=== PATIENT | female | born 1965 | race American Indian/Alaskan Native ===

== ENCOUNTER → 2022-06-06 | Outpatient (CLI) | payer OTHER ==
[~2022-06-06] MED LIST: ACYC800; AMPDEX10CR; AMPDEX5 PO; BUSP10; BUSP5 PO; CYCL10 PO; Flonase 0.05% N16 GM; HYDACE5 PO; IBUP800; LEVOXYL; LEVSOD50; OMEP20ER; PRILOSEC PO; Prednisone20 MG PO; SERT25 PO; SILSUL1TC TOP; Synthroid50 MCG; Zoloft50 MG
[2022-06-07 15:11] LABS: HPV 16 Negative (Negative); HPV 18 Negative (Negative); HPV OTHER HR TYPES Negative (Negative)
== END | disposition home or self-care (01) ==
LOC: LAB 17:17 → LAB SHORT 17:17
PROVIDERS: Family Medicine
DX: Z01.419 Encounter for gynecological examination (general) (routine) without abnormal findings (principal)
CPT/HCPCS: 87624; G0145

== ENCOUNTER 2024-04-25 18:00 | Inpatient (IN) | payer OTHER ==
[~2024-04-25] VITALS: Ht 172.7 cm; Wt 91.2 kg
[2024-04-25] MEDS ORDERED: Ondansetron HCl 2 MG / ML 2ML Vial IV PRN (18:40)
[2024-04-25 19:04] LABS: Source, Urine Clean Catch
[2024-04-25 19:06] LABS: BASOPHILS PERCENT AUTO 1 % (0-2); EOSINOPHILS ABSOLUTE AUTO 0.14 K/mm3 (0.00-0.68); EOSINOPHILS PERCENT AUTO 1 % (0-6); Hematocrit 42.5 % (33.0-51.0); Hemoglobin 14.1 g/dL (11.5-16.0); IMMATURE GRAN ABSOLUTE AUTO 0.09 K/mm3 (0.00-0.10); IMMATURE GRAN PERCENT AUTO 1 % (0-1); LYMPHOCYTES ABSOLUTE AUTO 1.42 K/mm3 (0.84-5.20); LYMPHOCYTES PERCENT AUTO 11 % (21-46); MONOCYTES ABSOLUTE AUTO 0.96 K/mm3 (0.16-1.47); MONOCYTES PERCENT AUTO 7 % (4-13); Mean Corpuscular HGB 31.9 pg (26.0-34.0); Mean Corpuscular HGB Conc 33.2 g/dL (31.5-36.5); Mean Corpuscular Volume 96 fL (80-100); Mean Platelet Volume 8.8 fL (9.1-12.4); NEUTROPHILS ABSOLUTE AUTO 10.28 K/mm3 (1.96-9.15); NEUTROPHILS PERCENT AUTO 79 % (41-73); Platelet Count 479 K/mm3 (150-400); RDW Coefficient Variation 12.1 % (11.7-14.2); RDW Standard Deviation 43.7 fL (35.1-46.3); Red Blood Cell Count 4.42 M/mm3 (3.80-5.20); White Blood Cell Count 12.99 K/mm3 (4.00-11.30)
[2024-04-25 19:14] LABS: Appearance, Urine Hazy (Clear); Bilirubin, Urine Neg (Neg); Blood, Urine 1+ (Neg); Color, Urine Yellow (P-Yellow); Glucose Qualitative, Urine Neg (Neg); Ketones, Urine Neg (Neg); Leukocyte Esterase, Urine 3+ (Neg); Nitrite, Urine Neg (Neg); Protein, Urine 2+ (Neg); Specific Gravity, Urine 1.005 (1.003-1.022); Urobilinogen, Urine 1+ (Normal)
[2024-04-25 19:37] LABS: Albumin, Blood 2.5 g/dL (3.4-5.0); Albumin/Globulin Ratio 0.5 (0.8-1.8); Bilirubin, Total 0.9 mg/dL (0.1-1.0); Bun/Creatinine Ratio 11.3 (12.0-20.0); Calcium, Blood 9.5 mg/dL (8.5-10.1); Creatinine, Blood 0.8 mg/dL (0.40-1.00); Globulin, Blood 5.1 g/dL (2.2-4.0); Potassium, Blood 3.8 mmol/L (3.5-5.5); Total Protein, Blood 7.6 g/dL (6.4-8.2)
[2024-04-25 19:43] LABS: Bacteria Many /hpf; Mucus Light (0-Heavy); Red Blood Cells, Urine 0-2 /hpf (0-2); Squamous Epithelial Cells Mod /hpf (Few); White Blood Cells, Urine 50-100 /hpf (0-5)
[2024-04-25] MEDS ORDERED: Cephalexin Monohydrate 500 MG Cap PO ONE (21:50)
[2024-04-26] MEDS ORDERED: CefTRIAXone Sodium 1,000 MG in NS 100 ML IV ONE (01:05)
[2024-04-26] MEDS ORDERED: Doxycycline Hyclate 100 MG TAB PO ONE (01:05)
[2024-04-26] MEDS ORDERED: MetroNIDAZOLE 500MG/NS 100 ml 100 ML IV ONE (01:05)
[2024-04-26] MEDS ORDERED: HYDROmorphone HCl/Pf 1MG SYR IV ONE (01:05)
[2024-04-26] MEDS ORDERED: Ondansetron HCl 2 MG / ML 2ML Vial IV PRN (03:00)
[2024-04-26] MEDS ORDERED: HYDROmorphone HCl/Pf 1MG SYR IV PRN (03:00)
[2024-04-26] MEDS ORDERED: FLU VACC TS2024-25(6MOS UP)/PF 45 MCG/0.5 ML SYRINGE IM ONE (03:15)
[2024-04-26] MEDS ORDERED: Metoclopramide HCl 5MG / ML 2ML Vial IV PRN (03:15)
[2024-04-26] MEDS ORDERED: Ondansetron 4 MG TAB PO PRN (03:15)
[2024-04-26] MEDS ORDERED: Magnesium Hydroxide Conc 10 ML UDC PO PRN (03:15)
[2024-04-26] MEDS ORDERED: Docusate Sodium 100 MG Cap PO PRN (03:20)
[2024-04-26 04:35] VITALS: BP 129/92
[2024-04-26] MEDS ORDERED: Budeprion Xl300 MG PO (04:50)
[2024-04-26] MEDS ORDERED: DESV50 PO (04:51)
[2024-04-26] MEDS ORDERED: LEVOTHYROXINE100 M10 PO (04:51)
[2024-04-26 05:11] LABS: BASOPHILS ABSOLUTE AUTO 0.09 K/mm3 (0.00-0.23); BASOPHILS PERCENT AUTO 1 % (0-2); EOSINOPHILS ABSOLUTE AUTO 0.13 K/mm3 (0.00-0.68); EOSINOPHILS PERCENT AUTO 1 % (0-6); Hematocrit 39.4 % (33.0-51.0); Hemoglobin 13.2 g/dL (11.5-16.0); IMMATURE GRAN ABSOLUTE AUTO 0.11 K/mm3 (0.00-0.10); IMMATURE GRAN PERCENT AUTO 1 % (0-1); LYMPHOCYTES ABSOLUTE AUTO 2.06 K/mm3 (0.84-5.20); LYMPHOCYTES PERCENT AUTO 13 % (21-46); MONOCYTES ABSOLUTE AUTO 1.43 K/mm3 (0.16-1.47); MONOCYTES PERCENT AUTO 9 % (4-13); Mean Corpuscular HGB Conc 33.5 g/dL (31.5-36.5); Mean Corpuscular Volume 96 fL (80-100); Mean Platelet Volume 8.8 fL (9.1-12.4); NEUTROPHILS ABSOLUTE AUTO 12.71 K/mm3 (1.96-9.15); NEUTROPHILS PERCENT AUTO 77 % (41-73); Platelet Count 466 K/mm3 (150-400); RDW Coefficient Variation 12.4 % (11.7-14.2); RDW Standard Deviation 44.2 fL (35.1-46.3); Red Blood Cell Count 4.12 M/mm3 (3.80-5.20); White Blood Cell Count 16.53 K/mm3 (4.00-11.30)
[2024-04-26 05:13] LABS: Bacterial Vaginosis PCR Negative (NEGATIVE); Candida Group, PCR NOT DETECTED (NOT DETECT); Candida glabrata-krusei, PCR NOT DETECTED (NOT DETECT)
[2024-04-26 05:44] LABS: Chlamydia Trachomatis Vaginal NOT DETECTED (NOT DETECT); Neisseria Gonorrhoea Vaginal NOT DETECTED (NOT DETECT)
[2024-04-26] MEDS ORDERED: NS 250 ML IV PRN (05:45)
--- NOTE | 2024-04-26 05:56 | NUR ---
NEW ADMIT PT A/OX4. FULL CODE. ADMIT FOR LOWER RIGHT ABD PAIN; ADMIT DX PYOSALPINGITIS. PT ARRIVED TO ROOM AND ABLE TO TRANSFER WITH VERBAL CUES ONLY. PT REPORTING A 6/10 PAIN IN RLQ. ORIENTED PT TO ROOM AND CALL LIGHT. EDUCATED PT ON VISITING HOURS. INSTRUCTED ON FALL PREVENTION. REVIEWED ADMIT DX ADN POC AT THIS TIME. EDUCATED ON ABOX TO TX INFECTION. PT CONSULTED WITH OBGYN/DR MCKEON. PT ON REGULAR DIET AND ABLE TO EAT AT THIS TIME. SURGERY NOT SCHEDULED FOR TODAY. PT DENIES IGNITION SOURCES AND SAFETY CONCERNS. WCTM UNTIL REPORT GIVEN TO ONCOMING NURSE.
[2024-04-26] MEDS ORDERED: CefOXitin Sodium 2,000 MG in NS 50 ML IV SCH (06:00)
[2024-04-26 07:42] VITALS: BP 125/74
[2024-04-26] MEDS ORDERED: Doxycycline Hyclate 100 MG TAB PO SCH (09:00)
[2024-04-26] MEDS ORDERED: Lactobacil 2-S.Thermo-Bifido 1 1 Cap PO SCH (09:00)
[2024-04-26] MEDS ORDERED: Acetaminophen 500 MG Tab PO PRN (10:10)
[2024-04-26] MEDS ORDERED: OxyCODONE HCL 5 MG TAB PO PRN (10:10)
[2024-04-26] MEDS ORDERED: Ketorolac Tromethamine 30mg Vial IV PRN (10:15)
[2024-04-26] MEDS ORDERED: Albuterol HFA200 ACT/6.7 GM INH INH PRN (11:55)
[2024-04-26] MEDS ORDERED: Polyethylene Glycol 3350 17 gm PO SCH (13:00)
[2024-04-26] MEDS ORDERED: Docusate Sodium 100 MG Cap PO SCH (13:00)
[2024-04-26 17:15] LABS: BASOPHILS ABSOLUTE AUTO 0.11 K/mm3 (0.00-0.23); BASOPHILS PERCENT AUTO 1 % (0-2); EOSINOPHILS ABSOLUTE AUTO 0.09 K/mm3 (0.00-0.68); EOSINOPHILS PERCENT AUTO 1 % (0-6); Hematocrit 40.6 % (33.0-51.0); Hemoglobin 13.4 g/dL (11.5-16.0); IMMATURE GRAN ABSOLUTE AUTO 0.08 K/mm3 (0.00-0.10); IMMATURE GRAN PERCENT AUTO 1 % (0-1); LYMPHOCYTES ABSOLUTE AUTO 1.13 K/mm3 (0.84-5.20); LYMPHOCYTES PERCENT AUTO 7 % (21-46); MONOCYTES ABSOLUTE AUTO 1.25 K/mm3 (0.16-1.47); MONOCYTES PERCENT AUTO 8 % (4-13); Mean Corpuscular HGB 32.1 pg (26.0-34.0); Mean Corpuscular Volume 97 fL (80-100); Mean Platelet Volume 8.7 fL (9.1-12.4); NEUTROPHILS ABSOLUTE AUTO 13.02 K/mm3 (1.96-9.15); NEUTROPHILS PERCENT AUTO 83 % (41-73); Platelet Count 461 K/mm3 (150-400); RDW Coefficient Variation 12.4 % (11.7-14.2); RDW Standard Deviation 44.2 fL (35.1-46.3); Red Blood Cell Count 4.17 M/mm3 (3.80-5.20); White Blood Cell Count 15.68 K/mm3 (4.00-11.30)
[2024-04-26 17:16] VITALS: BP 127/74
[2024-04-26] MEDS ORDERED: buPROPion HCL 150 MG TAB.SR.12H PO SCH (18:00)
--- NOTE | 2024-04-26 18:40 | NUR ---
SHIFT SUMMARY PATIENT A/OX4, ABLE TO MAKE NEEDS KNOWN. PLEASANT AND COOPERATIVE WITH CARE. DR. MCKEON ASSESSED PATIENT THIS SHIFT AND INFORMED HER OF GOAL TO PLAN TOTAL HYSTERECTOMY OUTPATIENT AND CONTINUE WITH ANTIBIOTIC TREATMENT OF PAIN DECREASES AND PATIENT TOLERATING NAUSEA AND PO INTAKE. POSSIBILITY IF INPATIENT SURGERY IF PATIENT DOES NOT IMPROVE. PATIENT CONTINUES WITH PAIN WITH MOVEMENTS, NAUSEA HAS DECREASED THIS AFTERNOON. PRN ZOFRAN AND ROXICODONE ADMINISTERED PER JUN. IV ABX INFUSED PER JUN. FAMILY AND FRIENDS AT BEDSIDE THROUGHOUT THE SHIFT. PATIENT ALSO ABLE TO HAVE APPROX 3 HOUR NAP THIS AFTERNOON. COMPLAINING OF INCREASED VAGINAL DISCHARGE. NO OTHER CONCERNS AT THIS TIME.
[2024-04-26 20:16] VITALS: BP 99/82
[2024-04-27 03:55] VITALS: BP 106/71
[2024-04-27] MEDS ORDERED: Levothyroxine Sodium 0.1 MG Tab PO SCH (06:00)
--- NOTE | 2024-04-27 06:24 | NUR ---
PHARMACIST SUMMARY PT A/OX4. NO ACTUE EVENTS. PT ABLE TO MAKE NEEDS KNOWN. PT REPORTING IMPROVED PAIN AND FEELING BETTER THIS MORNING. PT GIVEN ROXICODONE AND TORADOL FOR PAIN. PT REPORTING ZERO PAIN AT REST; MILD TO MODERATE PAIN WITH MOVEMENT. PT DENIES NAUSEA THIS SHIFT, BUT CONTINUES TO REPORT DIMINISHED APPETITE. CALL LIGHT ACCESSIBLE. REGULAR INTERVAL ROUNDING COMPLETE TO ASSESS AND MEET NEEDS. WCTM UNTIL REPORT GIVEN TO ONCOMING NURSE.
[2024-04-27 07:32] VITALS: BP 101/76
[2024-04-27 10:01] LABS: BASOPHILS ABSOLUTE AUTO 0.07 K/mm3 (0.00-0.23); BASOPHILS PERCENT AUTO 1 % (0-2); EOSINOPHILS ABSOLUTE AUTO 0.24 K/mm3 (0.00-0.68); EOSINOPHILS PERCENT AUTO 2 % (0-6); Hematocrit 38.1 % (33.0-51.0); Hemoglobin 12.6 g/dL (11.5-16.0); IMMATURE GRAN ABSOLUTE AUTO 0.09 K/mm3 (0.00-0.10); IMMATURE GRAN PERCENT AUTO 1 % (0-1); LYMPHOCYTES ABSOLUTE AUTO 1.55 K/mm3 (0.84-5.20); LYMPHOCYTES PERCENT AUTO 12 % (21-46); MONOCYTES ABSOLUTE AUTO 0.85 K/mm3 (0.16-1.47); MONOCYTES PERCENT AUTO 6 % (4-13); Mean Corpuscular HGB 32.3 pg (26.0-34.0); Mean Corpuscular HGB Conc 33.1 g/dL (31.5-36.5); Mean Corpuscular Volume 98 fL (80-100); Mean Platelet Volume 8.9 fL (9.1-12.4); NEUTROPHILS ABSOLUTE AUTO 10.43 K/mm3 (1.96-9.15); NEUTROPHILS PERCENT AUTO 79 % (41-73); Platelet Count 438 K/mm3 (150-400); RDW Coefficient Variation 12.3 % (11.7-14.2); RDW Standard Deviation 43.8 fL (35.1-46.3); White Blood Cell Count 13.23 K/mm3 (4.00-11.30)
[2024-04-27 16:50] VITALS: BP 112/83
--- NOTE | 2024-04-27 16:52 | NUR ---
TRANSFER NOTE PATIENT A/OX4, ABLE TO MAKE NEEDS KNOWN. INDEPENDENT IN ROOM. PER DR. MCKEON, PLAN TO CHANGE FROM IV ABX TO PO TONIGHT AND HOPEFUL FOR DISCHARGE TOMORROW NIGHT IF PATIENT TOLERATES WELL. PAIN TO RLQ AND NAUSEA CONTINUE TO DECREASE. PATIENT TOLERATING SMALL AMOUNTS OF PO INTAKE AT MEALS. PATIENT COMPLAINING OF INCREASED VAGINAL DISCHARGE. PRN PAIN MEDICATION ADMINISTERED PER JUN. FAMILY AT BEDSIDE CURRENTLY. NO OTHER CONCERNS AT THIS TIME. REPORT GIVEN TO ANIA. ALL BELONGINGS SENT WITH PATIENT TO ROOM 227.
--- NOTE | 2024-04-27 17:15 | NUR ---
TRANSFER 309 TO 227 PT BROUGHT DOWN TO SURGICAL FLOOR BY MEDICAL FLOOR STAFF IN A , ORIENTED TO NEW ROOM, DISCUSSED PLAN OF CARE FOR TONIGHT AND TOMORROW, MEDICATED FOR PAIN PER EMAR, IV ABX INFUSING. CURRENTLY IN BED WITH NO COMPLAINTS OR CONCERNS. CALL LIGHT IN REACH.
--- NOTE | 2024-04-27 18:48 | NUR ---
IV ABX UPDATE CLARIFIED ABX PLAN REGARDING IV ABX AND PO ABX WITH PROVIDER, UPDATED THE PATIENT BASED ON THIS CONVERSATION.
[2024-04-27 19:20] VITALS: BP 116/70
[2024-04-27] MEDS ORDERED: MetroNIDAZOLE 500 MG Tab PO SCH (21:00)
[2024-04-28 04:26] LABS: BASOPHILS ABSOLUTE AUTO 0.07 K/mm3 (0.00-0.23); BASOPHILS PERCENT AUTO 1 % (0-2); EOSINOPHILS ABSOLUTE AUTO 0.31 K/mm3 (0.00-0.68); EOSINOPHILS PERCENT AUTO 3 % (0-6); Hematocrit 36.4 % (33.0-51.0); Hemoglobin 12.2 g/dL (11.5-16.0); IMMATURE GRAN ABSOLUTE AUTO 0.06 K/mm3 (0.00-0.10); IMMATURE GRAN PERCENT AUTO 1 % (0-1); LYMPHOCYTES ABSOLUTE AUTO 1.51 K/mm3 (0.84-5.20); LYMPHOCYTES PERCENT AUTO 14 % (21-46); MONOCYTES ABSOLUTE AUTO 0.86 K/mm3 (0.16-1.47); MONOCYTES PERCENT AUTO 8 % (4-13); Mean Corpuscular HGB 32.5 pg (26.0-34.0); Mean Corpuscular HGB Conc 33.5 g/dL (31.5-36.5); Mean Corpuscular Volume 97 fL (80-100); Mean Platelet Volume 8.6 fL (9.1-12.4); NEUTROPHILS ABSOLUTE AUTO 8.31 K/mm3 (1.96-9.15); NEUTROPHILS PERCENT AUTO 75 % (41-73); Platelet Count 477 K/mm3 (150-400); RDW Coefficient Variation 12.3 % (11.7-14.2); RDW Standard Deviation 43.9 fL (35.1-46.3); Red Blood Cell Count 3.75 M/mm3 (3.80-5.20); White Blood Cell Count 11.12 K/mm3 (4.00-11.30)
[2024-04-28 04:28] VITALS: BP 112/76
--- NOTE | 2024-04-28 04:59 | NUR ---
SHIFT SUMMARY NOC. PT A/O X4. PT CONTINUES TO HAVE RLQ ABDOMINAL PAIN AGGRAVATED BY MOVEMENT. PAIN IMPROVES WITH TORADOL AND OXYCODONE THIS SHIFT. PT INDEPENDENT IN THE ROOM, VOIDING URINE. PT DENIES N/V AND TOLERATING CLEAR LIQUIDS, PT REPORTS NOT EATING MUCH. PT MAKES NEEDS KNOWN, CALL LIGHT IN REACH.
[2024-04-28 07:34] VITALS: BP 113/61
[2024-04-28] MEDS ORDERED: Lactobacil 2-S.Thermo-Bifido 1 1 Cap PO SCH (12:00)
[2024-04-28 14:37] LABS: HEPATITIS B SURFACE ANTIGEN Negative (Negative)
[2024-04-28 15:13] VITALS: BP 127/75
[2024-04-28 17:16] LABS: BASOPHILS ABSOLUTE AUTO 0.06 K/mm3 (0.00-0.23); BASOPHILS PERCENT AUTO 1 % (0-2); EOSINOPHILS ABSOLUTE AUTO 0.34 K/mm3 (0.00-0.68); EOSINOPHILS PERCENT AUTO 3 % (0-6); Hematocrit 41.4 % (33.0-51.0); Hemoglobin 13.9 g/dL (11.5-16.0); IMMATURE GRAN PERCENT AUTO 1 % (0-1); LYMPHOCYTES ABSOLUTE AUTO 1.77 K/mm3 (0.84-5.20); LYMPHOCYTES PERCENT AUTO 15 % (21-46); MONOCYTES ABSOLUTE AUTO 0.76 K/mm3 (0.16-1.47); MONOCYTES PERCENT AUTO 6 % (4-13); Mean Corpuscular HGB 32.4 pg (26.0-34.0); Mean Corpuscular HGB Conc 33.6 g/dL (31.5-36.5); Mean Corpuscular Volume 97 fL (80-100); Mean Platelet Volume 9.1 fL (9.1-12.4); NEUTROPHILS PERCENT AUTO 75 % (41-73); Platelet Count 612 K/mm3 (150-400); RDW Coefficient Variation 12.2 % (11.7-14.2); RDW Standard Deviation 43.8 fL (35.1-46.3); Red Blood Cell Count 4.29 M/mm3 (3.80-5.20); White Blood Cell Count 12.13 K/mm3 (4.00-11.30)
--- NOTE | 2024-04-28 17:24 | NUR ---
SUMMARY NO ACUTE CHANGES T/O SHIFT. PT INDEPEDENT, AMBULATED IN HALLS. MEDICATED PER ORDERS T/O SHIFT FOR RLQ PAIN. DR MCKEON IN TO SEE PT AT THIS TIME. CALL LIGHT IN REACH.
[2024-04-28 17:42] LABS: HIV 1,2 COMBO ANTIGEN/ANTIBODY Negative (Negative)
[2024-04-28] MEDS ORDERED: HYDROmorphone HCl/Pf 1MG SYR IV PRN (18:00)
[2024-04-28] MEDS ORDERED: CefOXitin Sodium 2,000 MG in NS 50 ML IV SCH (19:00)
[2024-04-28 20:01] VITALS: BP 142/90
[2024-04-28] MEDS ORDERED: Doxycycline Hyclate 100 MG in Dextrose 5% 250 ML IV SCH (21:00)
[2024-04-29] VITALS (22 sets, daily range): BP systolic 98–128; BP diastolic 62–82
[2024-04-29] MEDS ORDERED: NS 250 ML IV SCH
[2024-04-29 04:42] LABS: BASOPHILS ABSOLUTE AUTO 0.09 K/mm3 (0.00-0.23); BASOPHILS PERCENT AUTO 1 % (0-2); EOSINOPHILS PERCENT AUTO 3 % (0-6); Hematocrit 38.1 % (33.0-51.0); Hemoglobin 12.4 g/dL (11.5-16.0); IMMATURE GRAN ABSOLUTE AUTO 0.09 K/mm3 (0.00-0.10); IMMATURE GRAN PERCENT AUTO 1 % (0-1); LYMPHOCYTES ABSOLUTE AUTO 1.62 K/mm3 (0.84-5.20); LYMPHOCYTES PERCENT AUTO 15 % (21-46); MONOCYTES ABSOLUTE AUTO 0.92 K/mm3 (0.16-1.47); MONOCYTES PERCENT AUTO 9 % (4-13); Mean Corpuscular HGB 31.7 pg (26.0-34.0); Mean Corpuscular HGB Conc 32.5 g/dL (31.5-36.5); Mean Corpuscular Volume 97 fL (80-100); Mean Platelet Volume 8.6 fL (9.1-12.4); NEUTROPHILS ABSOLUTE AUTO 7.74 K/mm3 (1.96-9.15); NEUTROPHILS PERCENT AUTO 72 % (41-73); Platelet Count 550 K/mm3 (150-400); RDW Coefficient Variation 12.3 % (11.7-14.2); RDW Standard Deviation 44.3 fL (35.1-46.3); Red Blood Cell Count 3.91 M/mm3 (3.80-5.20); White Blood Cell Count 10.76 K/mm3 (4.00-11.30)
--- NOTE | 2024-04-29 05:44 | NUR ---
SHIFT SUMMARY NOC. PT A/O X4. PT HAVING RLQ ABDOMINAL PAIN WHICH WORSENS WITH MOVEMENT. PT RECEIVED DILAUDID X1 WITH RELIEF OF SX. PT INDEPENDENT IN ROOM, SBA WITH CORD MANAGEMENT. PT VOIDING URINE. PT NPO SINCE 0000 ASIDE FROM SMALL SIP OF WATER FOR THYROID MEDICATION. PT DENIES N/V. PT ANXIOUS AT TIMES AND REASSURANCE AND SUPPORT PROVIDED. MAKES NEEDS KNOWN, CALL LIGHT IN REACH.
--- NOTE | 2024-04-29 06:48 | NUR ---
LEFT THE FLOOR WITH DAY SURGERY STAFF AT 0645.
--- NOTE | 2024-04-29 07:04 | NUR ---
PATIENT INTO SDS VIA GURN FROM SURGICAL FLOOR. REPORTS PAIN TO RIGHT LOWER ABDOMEN 4/10. TOLERABLE LEVEL 6. DENIES NAUSE. History, Chart, Medications and Allergies reviewed before start of procedure.Patient confirms NPO status and agrees with scheduled surgery.SURGICAL FLOOR RN REPORTS 2 CHLOREHEXIDIDE WIPES ON FLOOR, LAST NIGHT AND THIS AM. Surgical site prepped with 2% Chlorhexidine cloth wipe. LEFT AC 20 G PERIPHERAL IV FLUSHED, GOOD BLOOD RETURN. PATIENT DOES NOT WANT NEW IV WHILE AWAKE.
[2024-04-29] MEDS ORDERED: Bupivacaine 0.5% HCl 5 MG/ML 30MLVIAL ONE (07:06)
--- NOTE | 2024-04-29 07:17 | NUR ---
PT IN PRE OP.
[2024-04-29] MEDS ORDERED: Lactated Ringer's 1,000 ML IV ONE (07:20)
[2024-04-29] MEDS ORDERED: Midazolam HCl 1MG / ML 2ML Vial ONE (07:22)
[2024-04-29] MEDS ORDERED: Lactated Ringer's 1,000 ML IV SCH (07:25)
[2024-04-29] MEDS ORDERED: propofoL 20 ML IV ONE ×2 (07:28→10:07)
[2024-04-29] MEDS ORDERED: FentaNYL Citrate 50 MCG/ML 2 ML Injection ONE ×5 (07:28→13:21)
[2024-04-29] MEDS ORDERED: Ondansetron HCl 2 MG / ML 2ML Vial ONE ×3 (07:39→12:13)
[2024-04-29] MEDS ORDERED: Dexamethasone Sod Phos 10 MG/ML 1ML VIAL ONE ×2 (07:39→08:26)
[2024-04-29] MEDS ORDERED: Phenylephrine HCl 100 MCG/ML-NS 10MLSYR (1MG/10ML) ONE (07:40)
[2024-04-29] MEDS ORDERED: Lidocaine HCl 2% 20 ML MDV ONE (08:26)
[2024-04-29] MEDS ORDERED: SuccINYLCHOLINE Chloride 100 MG/5 ML 5MLSYR ONE (08:26)
[2024-04-29] MEDS ORDERED: Rocuronium Bromide 10 MG/ML 5ML Injection IV ONE ×2 (08:26→10:51)
[2024-04-29] MEDS ORDERED: Ketorolac Tromethamine 30mg Vial ONE (09:34)
[2024-04-29] MEDS ORDERED: Labetalol HCL 5 MG/ML 4ML Injection (Single Dose) ONE (11:10)
[2024-04-29] MEDS ORDERED: Sugammadex Sodium 200 MG/2ML SDV (100 MG/ML) ONE (12:15)
[2024-04-29] MEDS ORDERED: FLU VACC TS2024-25(6MOS UP)/PF 45 MCG/0.5 ML SYRINGE IM SCH (13:05)
[2024-04-29] MEDS ORDERED: Ondansetron HCl 2 MG / ML 2ML Vial IV PRN (13:10)
[2024-04-29] MEDS ORDERED: OxyCODONE HCL 5 MG TAB PO PRN ×2 (13:10→13:15)
[2024-04-29] MEDS ORDERED: Simethicone 80 MG Chew PO PRN (13:10)
[2024-04-29] MEDS ORDERED: Ibuprofen 400 MG Tab PO PRN (13:10)
[2024-04-29] MEDS ORDERED: DiphenhydrAMINE HCL 25 MG Cap PO PRN (13:10)
[2024-04-29] MEDS ORDERED: FentaNYL Citrate 50 MCG/ML 2 ML Injection IV PRN ×2 (13:15→13:25)
--- NOTE | 2024-04-29 14:13 | NUR ---
PT ARRIVED TO UNIT FROM PACU TRANSFERRED FROM [facility] TO BED USING SLIDER SHEET. LAP INCISIONS X4 TO ABD W/TISS ADHESIVE CDI. SCANT AMOUNT BLEEDING NOTED ON SONG PAD. ARREAGA CATH DRAINING DARK YELLOW URINE. VSS. CALL LIGHT IN REACH. VISITOR BEDSIDE.
[2024-04-29] MEDS ORDERED: Phenazopyridine HCl 100 MG Tab PO ONE (15:10)
[2024-04-29] MEDS ORDERED: NS 250 ML IV PRN (15:30)
[2024-04-29] MEDS ORDERED: Acetaminophen 500 MG Tab PO SCH (16:00)
--- NOTE | 2024-04-29 17:12 | NUR ---
SUMMARY NO ACUTE CHANGES SINCE ARRIVING TO UNIT FROM PACU. C/O OF CATHETER DISCOMFORT; REC'D AND ADMINISTERED OT ORDER OF PYRIDIUM; PT REPORTS SOME RELIEF. MEDICATED PER ORDERS FOR INTERMITTENT ABDOMINAL PAIN. LAP INCISIONS TO ABD CDI. VSS. CALL LIGHT IN REACH.
[2024-04-29] MEDS ORDERED: Ketorolac Tromethamine 30mg Vial IV SCH (18:00)
[2024-04-29] MEDS ORDERED: Gabapentin 100 MG Cap PO SCH (21:00)
[2024-04-29 22:38] LABS: HCV QNT BY NAAT (IU/ML) Not Detected; HCV QNT BY NAAT (LOG IU/ML) Not Detected; HCV QNT BY NAAT INTERP Not Detected (Not Detected)
--- NOTE | 2024-04-30 04:22 | NUR ---
SHIFT SUMMARY POD 1 LAP HYSTER PT ABLE TO REST DURING THE NIGHT. PAIN MANAGED PER EMAR. TOLERATING PO INTAKE, VOIDING. X4 LAP SITES CLOSED WITH WG ARE C/D/I. PT HAVING SCANT AMOUNT OF VAGINAL BLEEDING. PT 1P SAB WITH FWW AND GB. VSS. NO OTHER CONCERNS AT THIS TIME, CALL LIGHT WITHIN REACH
[2024-04-30 05:06] VITALS: BP 104/65
[2024-04-30 05:40] LABS: BASOPHILS ABSOLUTE AUTO 0.07 K/mm3 (0.00-0.23); BASOPHILS PERCENT AUTO 1 % (0-2); EOSINOPHILS ABSOLUTE AUTO 0.11 K/mm3 (0.00-0.68); EOSINOPHILS PERCENT AUTO 1 % (0-6); Hematocrit 34.3 % (33.0-51.0); IMMATURE GRAN PERCENT AUTO 1 % (0-1); LYMPHOCYTES ABSOLUTE AUTO 1.88 K/mm3 (0.84-5.20); LYMPHOCYTES PERCENT AUTO 16 % (21-46); MONOCYTES ABSOLUTE AUTO 1.07 K/mm3 (0.16-1.47); MONOCYTES PERCENT AUTO 9 % (4-13); Mean Corpuscular HGB 31.7 pg (26.0-34.0); Mean Corpuscular HGB Conc 32.1 g/dL (31.5-36.5); Mean Corpuscular Volume 99 fL (80-100); Mean Platelet Volume 8.6 fL (9.1-12.4); NEUTROPHILS ABSOLUTE AUTO 8.72 K/mm3 (1.96-9.15); NEUTROPHILS PERCENT AUTO 73 % (41-73); Platelet Count 559 K/mm3 (150-400); RDW Coefficient Variation 12.8 % (11.7-14.2); RDW Standard Deviation 46.4 fL (35.1-46.3); Red Blood Cell Count 3.47 M/mm3 (3.80-5.20); White Blood Cell Count 11.95 K/mm3 (4.00-11.30)
[2024-04-30 07:25] VITALS: BP 103/69
[2024-04-30] MEDS ORDERED: Enoxaparin 40 MG/0.4 ML SYR SC SCH (09:00)
[2024-04-30] MEDS ORDERED: MetroNIDAZOLE 500 MG Tab PO SCH (11:17)
[2024-04-30 14:58] VITALS: BP 102/69
--- NOTE | 2024-04-30 18:24 | NUR ---
PT POD 1 LAP HYSTERECTOMY. VSS, ON RA, A&OX4 PAIN MANAGED PER EMAR. PT ABLE TO WALK TO BATHROOM TO VOID, NO BM, PT REPORTS PASSING GAS. 4 LAP SITES SECURED WITH WG C/D/I. PT WALKED IN HALLS WITH FAMILY, TOLERATING PO INTAKE BUT LITTLE APPETITE. IV ANTIBIOTICS DC, AND ORAL FLAGYL STARTED. PT ABLE TO MAKE NEED KNOWN, CALL LIGHT IN REACH, BED IN LOWEST POSITION.
[2024-04-30 19:03] VITALS: BP 112/77
[2024-04-30] MEDS ORDERED: Doxycycline Hyclate 100 MG TAB PO SCH (21:00)
--- NOTE | 2024-05-01 04:24 | NUR ---
SHIFT SUMMARY POD 2 LAP HYSTER PT ABLE TO REST DURING THE NIGHT. PAIN MANAGED PER EMAR. TOLERATING PO INTAKE VOIDING. PT IND IN THR ROOM. X4 LAP SITES CLOSED WITH WG, C/D/I. PT HAVING SCANT AMOUNT OF VAGINAL BLEEDING. VSS. NO OTHER CONCERNS AT THIS TIME, CALL LIGHT WITHIN REACH
[2024-05-01 04:54] VITALS: BP 120/79
[2024-05-01 04:58] LABS: BASOPHILS ABSOLUTE AUTO 0.07 K/mm3 (0.00-0.23); BASOPHILS PERCENT AUTO 1 % (0-2); EOSINOPHILS ABSOLUTE AUTO 0.36 K/mm3 (0.00-0.68); EOSINOPHILS PERCENT AUTO 5 % (0-6); IMMATURE GRAN ABSOLUTE AUTO 0.07 K/mm3 (0.00-0.10); IMMATURE GRAN PERCENT AUTO 1 % (0-1); LYMPHOCYTES ABSOLUTE AUTO 1.89 K/mm3 (0.84-5.20); LYMPHOCYTES PERCENT AUTO 24 % (21-46); MONOCYTES ABSOLUTE AUTO 0.75 K/mm3 (0.16-1.47); MONOCYTES PERCENT AUTO 9 % (4-13); Mean Corpuscular HGB 31.4 pg (26.0-34.0); Mean Corpuscular HGB Conc 31.3 g/dL (31.5-36.5); Mean Corpuscular Volume 101 fL (80-100); Mean Platelet Volume 8.5 fL (9.1-12.4); NEUTROPHILS ABSOLUTE AUTO 4.84 K/mm3 (1.96-9.15); NEUTROPHILS PERCENT AUTO 61 % (41-73); Platelet Count 542 K/mm3 (150-400); RDW Coefficient Variation 12.8 % (11.7-14.2); RDW Standard Deviation 47.5 fL (35.1-46.3); Red Blood Cell Count 3.18 M/mm3 (3.80-5.20); White Blood Cell Count 7.98 K/mm3 (4.00-11.30)
[2024-05-01 07:34] VITALS: BP 118/79
--- NOTE | 2024-05-01 16:56 | NUR ---
SHIFT SUMMARY POD 2 LAP HYSTER PT AMBULATING INDEPENDENTLY IN ROOM, LAP SITES REMAIN CDI. PT TOLERATING DIET. PASSING GAS. PRESCRIPTIONS ELECTRONICALLY SENT TO PHARMACY FOR PATIENT AT THIS TIME. PT EAGER TO DISCHARGE AT SOME POINT.
[2024-05-01 17:26] VITALS: BP 123/81
[2024-05-01 19:24] VITALS: BP 118/75
[2024-05-01 20:32] LABS: Hematocrit 32.7 % (33.0-51.0); Hemoglobin 10.3 g/dL (11.5-16.0)
[2024-05-02 04:35] VITALS: BP 123/81
--- NOTE | 2024-05-02 06:09 | NUR ---
SHIFT SUMMARY NOC. PT POD 3 LAP HYSTERECTOMY. LAP SITES C/D/I. PT VOIDING URINE AND TOLERATING PO INTAKE. PT INDEPENDENT IN THE ROOM. PT MEDICATED FOR PAIN WITH REPORTED RELIEF OF SX. MAKES NEEDS KNOWN CALL LIGHT IN REACH. PLAN TO DISCHARGE TODAY.
[2024-05-02 07:12] VITALS: BP 146/89
[2024-05-02 07:55] LABS: BASOPHILS ABSOLUTE AUTO 0.06 K/mm3 (0.00-0.23); BASOPHILS PERCENT AUTO 1 % (0-2); EOSINOPHILS ABSOLUTE AUTO 0.36 K/mm3 (0.00-0.68); EOSINOPHILS PERCENT AUTO 5 % (0-6); Hematocrit 35.8 % (33.0-51.0); Hemoglobin 11.4 g/dL (11.5-16.0); IMMATURE GRAN PERCENT AUTO 2 % (0-1); LYMPHOCYTES ABSOLUTE AUTO 2.07 K/mm3 (0.84-5.20); LYMPHOCYTES PERCENT AUTO 30 % (21-46); MONOCYTES ABSOLUTE AUTO 0.57 K/mm3 (0.16-1.47); MONOCYTES PERCENT AUTO 8 % (4-13); Mean Corpuscular HGB 31.7 pg (26.0-34.0); Mean Corpuscular HGB Conc 31.8 g/dL (31.5-36.5); Mean Corpuscular Volume 99 fL (80-100); Mean Platelet Volume 8.4 fL (9.1-12.4); NEUTROPHILS ABSOLUTE AUTO 3.72 K/mm3 (1.96-9.15); NEUTROPHILS PERCENT AUTO 54 % (41-73); Platelet Count 619 K/mm3 (150-400); RDW Coefficient Variation 12.6 % (11.7-14.2); RDW Standard Deviation 46.3 fL (35.1-46.3); White Blood Cell Count 6.88 K/mm3 (4.00-11.30)
[2024-05-02] MEDS ORDERED: ACET500 PO (08:35)
[2024-05-02] MEDS ORDERED: ALBU90OI INH (08:43)
[2024-05-02] MEDS ORDERED: IBUP800 PO (08:44)
[2024-05-02] MEDS ORDERED: DOXY100 PO (08:44)
[2024-05-02] MEDS ORDERED: DULCOLAX400 MG/5 M PO (08:45)
[2024-05-02] MEDS ORDERED: METR500 PO (08:45)
[2024-05-02] MEDS ORDERED: OXAYDO5 M2 PO (08:45)
[2024-05-02] MEDS ORDERED: SIME80CH PO (08:46)
[2024-05-02] MEDS ORDERED: MIRALAX17 GM PO (08:46)
[2024-05-02] MEDS ORDERED: VISBIOME 112.51 EACH PO (08:47)
--- NOTE | 2024-05-02 10:12 | NUR ---
discharge pod 3 lap hyster pt ambulating well during shift. pain well controlled per emar. pt tolerating diet, denies any nausea. no vaginal bleeding. lap sites cdi. all belongings iwth patient escorted out via wheelchair. pt plans to pickup [place] paperwork sunday from physicians office. prescriptions picked up prior to discharge.
== END 2024-05-02 10:15 | disposition home or self-care (01) | DRG 742 ==
LOC: ER 18:00 → SURS 18:01 → EDBEDREQ 04-26 03:57 → MEDS 04-26 04:30 → SURS 04-26 15:01 → MEDS 04-26 15:01 → SURS 04-27 16:49
PROVIDERS: Emergency Medicine; Student in an Organized Health Care Education/Training Program; Surgery; ADMIT Obstetrics & Gynecology
PROC: 0UT9FZZ Resection of Uterus, Via Natural or Artificial Opening With Percutaneous Endoscopic Assistance (ICD-10-PCS; 2024-04-29)
PROC: 0UB77ZZ Excision of Bilateral Fallopian Tubes, Via Natural or Artificial Opening (ICD-10-PCS; 2024-04-29)
PROC: 0W9J4ZX Drainage of Pelvic Cavity, Percutaneous Endoscopic Approach, Diagnostic (ICD-10-PCS; 2024-04-29)
PROC: 0TJB8ZZ Inspection of Bladder, Via Natural or Artificial Opening Endoscopic (ICD-10-PCS; 2024-04-29)
PROC: 8E0W4CZ Robotic Assisted Procedure of Trunk Region, Percutaneous Endoscopic Approach (ICD-10-PCS; 2024-04-29)
PROC: 8E0W4CZ Robotic Assisted Procedure of Trunk Region, Percutaneous Endoscopic Approach (ICD-10-PCS; 2024-04-29)
PROC: 0UT2FZZ Resection of Bilateral Ovaries, Via Natural or Artificial Opening With Percutaneous Endoscopic Assistance (ICD-10-PCS; principal; 2024-04-29 07:30)
PROC: 0W9J4ZZ Drainage of Pelvic Cavity, Percutaneous Endoscopic Approach (ICD-10-PCS; 2024-04-29 07:30)
DX: N70.93 Salpingitis and oophoritis, unspecified (principal); E87.1 Hypo-osmolality and hyponatremia; J44.9 Chronic obstructive pulmonary disease, unspecified; F10.20 Alcohol dependence, uncomplicated; F90.9 Attention-deficit hyperactivity disorder, unspecified type; D64.9 Anemia, unspecified; N73.6 Female pelvic peritoneal adhesions (postinfective); E66.9 Obesity, unspecified; E03.9 Hypothyroidism, unspecified; F41.8 Other specified anxiety disorders; I10 Essential (primary) hypertension; N83.292 Other ovarian cyst, left side; N83.291 Other ovarian cyst, right side; N70.01 Acute salpingitis; N70.11 Chronic salpingitis; D25.9 Leiomyoma of uterus, unspecified; Z98.890 Other specified postprocedural states; Z79.899 Other long term (current) drug therapy; Z79.890 Hormone replacement therapy; Z90.89 Acquired absence of other organs; Z98.51 Tubal ligation status; Z68.30 Body mass index [BMI] 30.0-30.9, adult; Z30.2 Encounter for sterilization
CPT/HCPCS: 36415; 74177; 76830; 76856; 80053; 81001; 83690; 85014; 85018; 85025; 86592; 86850; 86900; 86901; 87070; 87075; 87086; 87205; 87340; 87389; 87481; 87491; 87522; 87591; 87661; 87801; 88104; 94760; 94762; 96365; 96366; 96367; 96375; 96376; 99285-25; A9270; G0378; J0330; J0694; J0696; J1100; J1171; J1885; J2250; J2371; J2405; J2704; J2765; J3010; J7050; J7060; J7120; Q9967

== ENCOUNTER → 2024-06-09 | Outpatient (CLI) | payer OTHER ==
[~2024-06-09] MED LIST changes: +ACET500 PO; +ALBU90OI INH; +Budeprion Xl300 MG PO; +DESV50 PO; +DOXY100 PO; +DULCOLAX400 MG/5 M PO; +IBUP800 PO; +LEVOTHYROXINE100 M10 PO; +METR500 PO; +MIRALAX17 GM PO; +OXAYDO5 M2 PO; +SIME80CH PO; +VISBIOME 112.51 EACH PO
== END | disposition home or self-care (01) ==
LOC: LAB 16:31 → LAB SHORT 16:31
DX: Z11.59 Encounter for screening for other viral diseases (principal); R31.0 Gross hematuria
CPT/HCPCS: 87086

== ENCOUNTER 2024-08-12 07:55 | Day surgery (SDC) | payer OTHER ==
[~2024-08-12] VITALS: Ht 172.7 cm; Wt 86.7 kg
[2024-08-12] MEDS ORDERED: ONDA4ODT (08:46)
[2024-08-12] MEDS ORDERED: Lactated Ringer's 1,000 ML IV ONE ×2 (09:20→09:33)
[2024-08-12] MEDS ORDERED: propofoL 40 ML IV ONE (09:32)
[2024-08-12 10:49] VITALS: BP 116/75
== END 2024-08-12 10:43 | disposition home or self-care (01) ==
LOC: ORSCSDS 07:55
PROVIDERS: Surgery
PROC: 0DBL8ZX Excision of Transverse Colon, Via Natural or Artificial Opening Endoscopic, Diagnostic (ICD-10-PCS; principal; 2024-08-12 09:30)
PROC: 0DBP8ZX Excision of Rectum, Via Natural or Artificial Opening Endoscopic, Diagnostic (ICD-10-PCS; principal; 2024-08-12 09:30)
DX: Z12.11 Encounter for screening for malignant neoplasm of colon (principal); Z86.0102 Personal history of hyperplastic colon polyps; D12.3 Benign neoplasm of transverse colon; K62.1 Rectal polyp; K57.30 Diverticulosis of large intestine without perforation or abscess without bleeding; E03.9 Hypothyroidism, unspecified; F41.3 Other mixed anxiety disorders; F32.A Depression, unspecified; Z79.899 Other long term (current) drug therapy
CPT/HCPCS: 88305; J2704; J7120

== ENCOUNTER 2025-01-27 11:53 | Emergency (ER) | payer OTHER ==
[~2025-01-27] VITALS: Ht 172.7 cm; Wt 90.7 kg
[~2025-01-27 11:53] MED LIST changes: +ONDA4ODT
[2025-01-27] MEDS ORDERED: Ondansetron HCl 2 MG / ML 2ML Vial IV ONE (12:15)
[2025-01-27] MEDS ORDERED: Ketorolac Tromethamine 15mg Vial IV ONE (12:15)
[2025-01-27] MEDS ORDERED: NS 1,000 ML IV SCH (12:15)
[2025-01-27 12:40] LABS: BASOPHILS ABSOLUTE AUTO 0.08 K/mm3 (0.00-0.23); BASOPHILS PERCENT AUTO 1 % (0-2); EOSINOPHILS ABSOLUTE AUTO 0.09 K/mm3 (0.00-0.68); EOSINOPHILS PERCENT AUTO 1 % (0-6); Hematocrit 45.2 % (33.0-51.0); Hemoglobin 15.3 g/dL (11.5-16.0); IMMATURE GRAN ABSOLUTE AUTO 0.06 K/mm3 (0.00-0.10); IMMATURE GRAN PERCENT AUTO 0 % (0-1); LYMPHOCYTES ABSOLUTE AUTO 1.24 K/mm3 (0.84-5.20); LYMPHOCYTES PERCENT AUTO 8 % (21-46); MONOCYTES ABSOLUTE AUTO 1.38 K/mm3 (0.16-1.47); MONOCYTES PERCENT AUTO 9 % (4-13); Mean Corpuscular HGB Conc 33.8 g/dL (31.5-36.5); Mean Corpuscular Volume 94 fL (80-100); NEUTROPHILS ABSOLUTE AUTO 12.42 K/mm3 (1.96-9.15); NEUTROPHILS PERCENT AUTO 81 % (41-73); NRBC ABSOLUTE 0.00 K/mm3 (0.00-0.02); NRBC Auto 0.0 /100 WBC (0.0-0.2); Platelet Count 382 K/mm3 (150-400); RDW Coefficient Variation 11.9 % (11.7-14.2); RDW Standard Deviation 41.1 fL (35.1-46.3)
[2025-01-27 13:01] LABS: Alanine Aminotransfer (ALT/SGP 50.0 U/L (12-78); Albumin, Blood 3.7 g/dL (3.4-5.0); Albumin/Globulin Ratio 0.8 (0.8-1.8); Anion Gap 10.0 mmol/L (3-11); Aspartate Aminotrans (AST/SGOT 24.0 U/L (12-37); Bilirubin, Total 1.4 mg/dL (0.1-1.0); Blood Urea Nitrogen 9.0 mg/dL (8-24); CO2, Blood 25.0 mmol/L (21-32); Calcium, Blood 9.6 mg/dL (8.5-10.1); Chloride, Blood 105.0 mmol/L (98-108); Creatinine, Blood 0.65 mg/dL (0.40-1.00); Globulin, Blood 4.4 g/dL (2.2-4.0); Glucose, Blood 120.0 mg/dL (70-99); Potassium, Blood 3.5 mmol/L (3.5-5.5); Sodium, Blood 136.0 mmol/L (136-145); Total Protein, Blood 8.1 g/dL (6.4-8.2)
[2025-01-27 14:29] LABS: Source, Urine Clean Catch
[2025-01-27 14:36] LABS: Bilirubin, Urine Neg (Neg); Color, Urine Pale Yellow (P-Yellow); Glucose Qualitative, Urine Neg (Neg); Ketones, Urine Neg (Neg); Leukocyte Esterase, Urine Neg (Neg); Protein, Urine Neg (Neg); Specific Gravity, Urine 1.005 (1.003-1.022); Urobilinogen, Urine NORM (Normal)
[2025-01-27 15:29] VITALS: BP 119/76
[2025-01-27] MEDS ORDERED: AMOCLA875 PO (16:06)
== END 2025-01-27 16:10 | disposition home or self-care (01) ==
LOC: ER 11:53
PROVIDERS: Physician Assistant
DX: K57.32 Diverticulitis of large intestine without perforation or abscess without bleeding (principal); Z98.890 Other specified postprocedural states; Z79.890 Hormone replacement therapy; Z79.899 Other long term (current) drug therapy; Z59.89 Other problems related to housing and economic circumstances
CPT/HCPCS: 36415; 74177; 80053; 81003; 83605; 83690; 85025; 87040; 96361; 96374-59; 96375; 99284-25; J1885; J2405; J7030; Q9967